=== PATIENT | female | born 2000 | race American Indian/Alaskan Native ===

== ENCOUNTER 2020-08-19 19:05 | Outpatient (CLI) | payer MEDICAID ==
[2020-08-19] MEDS ORDERED: LACTATED RINGERS 500 ML IV ONE (19:52)
[2020-08-19] MEDS ORDERED: MORPHINE 4 MG/1 ML INJ IM ONE (19:53)
[2020-08-19] MEDS ORDERED: ACETAMINOPHEN 500 MG TAB PO ONE (19:53)
--- NOTE | 2020-08-19 20:59 | Ultrasound Report ---
ULTRASOUND OBSTETRIC LIMITED ULTRASOUND BIOPHYSICAL PROFILE INDICATION / CLINICAL INFORMATION: SUSAN/BBP. Kicked in the stomach Clinical Gestational Age (GA): 35.3 weeks.days COMPARISON: None available. FINDINGS: BREATHING MOVEMENT = 2 GROSS BODY MOVEMENT = 2 TONE = 2 QUALITATIVE AMNIOTIC FLUID VOLUME = 2 TOTAL BIOPHYSICAL SCORE = 8/8 HEART RATE (beats per minute): 155 AMNIOTIC FLUID INDEX (cm) = 15.3 (normal = 7-24 cm) PRESENTATION: Cephalic. ADDITIONAL FINDINGS: The placenta is located anteriorly on the right, is grade 1 and is free of the o s. There is no evidence of abruption. IMPRESSION: 1. Biophysical Score = 8/8 2. SUSAN 15.3 cm. 3. No evidence of placental abruption. Signer Name: Truman Luna MD Signed: 08/19/2020 8:55 PM Workstation Name: [id number]
[2020-08-19 21:48] LABS: Bilirubin,Urine NEG (Negative); Blood,Urine NEG (Negative); Color,Urine Yellow (Yellow); Mucus,Urine 1+ /HPF; Urobilinogen,Urine < 2.0 mg/dL (<2.0)
[2020-08-19 22:07] LABS: Alanine Aminotransferase 6 units/L (7-56); Uric Acid 4.4 mg/dL (3.5-7.6)
[2020-08-19 22:10] VITALS: BP 139/71
== END 2020-08-19 22:29 | disposition home or self-care (01) ==
LOC: TRG 19:05 → APU 19:16 → TRG 22:29
PROVIDERS: ATTEND Obstetrics & Gynecology
DX: Z34.93 Encounter for supervision of normal pregnancy, unspecified, third trimester (principal); Z3A.35 35 weeks gestation of pregnancy
CPT/HCPCS: 36415; 59025; 76815; 76819; 81001; 82565; 83615; 84450; 84460; 84550; 87086

== ENCOUNTER 2020-09-09 10:27 | Emergency (ER) | payer MEDICAID ==
--- NOTE | 2020-09-09 10:53 | Emergency Department Report ---
ED Psych HPI - General Stated Complaint: SUICIDAL Time Seen by Provider: 09/09/20 10:42 Source: patient, EMS - History of Present Illness Initial Comments: Patient is 19 years old female with history of depression. Patient presented to the ER complaining of depression and suicidal ideation. Patient deliver 1 week ago. Patient stated that her plan is to jump in front of a moving car. Patient had similar episode after her first baby. Patient denied any homicidal ideation. No visual or auditory hallucination. MD Complaint: suicidal ideation, feels depressed -: days(s) - Related Data Previous Rx's Medication Instructions Recorded Last Taken Type Nitrofurantoin [place]/M-Cryst 100 mg PO Q12HR #12 capsule 10/12/19 Unknown Rx [Macrobid CAP] Allergies Allergy/AdvReac Type Severity Reaction Status Date / Time shellfish derived Allergy Swelling Verified 10/12/19 18:03 ED Review of Systems ROS: Stated complaint: SUICIDAL Other details as noted in HPI Comment: All other systems reviewed and negative Constitutional: denies: chills, fever Respiratory: denies: cough, shortness of breath Cardiovascular: denies: chest pain, palpitations Gastrointestinal: denies: abdominal pain, nausea, vomiting Neurological: denies: headache, weakness, numbness, paresthesias, confusion Psychiatric: depression, suicidal thoughts. denies: auditory hallucinations, visual hallucinations, homicidal thoughts ED Past Medical Hx - Past Medical History Hx Hypertension: No Hx Diabetes: No Hx Deep Vein Thrombosis: No Hx Renal Disease: No Hx Sickle Cell Disease: No Hx Arthritis: Yes Hx Seizures: No Hx Asthma: Yes (LAST ATTACK CHILD) Hx HIV: No - Social History Smoking Status: Never Smoker - Medications Home Medications: Home Medications Medication Instructions Recorded Confirmed Last Taken Type Nitrofurantoin [place]/M-Cryst 100 mg PO Q12HR #12 capsule 10/12/19 Unknown Rx [Macrobid CAP] ED Physical Exam - General Limitations: No Limitations General appearance: alert, in no apparent distress, other (depressed) - Head Head exam: Present: atraumatic, normocephalic, normal inspection - Eye Eye exam: Present: normal appearance, PERRL - ENT ENT exam: Present: normal exam, normal orophraynx, mucous membranes moist - Neck Neck exam: Present: normal inspection, full ROM. Absent: tenderness, meningismus, lymphadenopathy, thyromegaly - Respiratory Respiratory exam: Present: normal lung sounds bilaterally - Cardiovascular Cardiovascular Exam: Present: regular rate, normal rhythm, normal heart sounds - GI/Abdominal GI/Abdominal exam: Present: soft, normal bowel sounds. Absent: distended, tenderness, guarding, rebound, rigid, organomegaly, mass, bruit, pulsatile mass, hernia - Extremities Exam Extremities exam: Present: normal inspection, full ROM, normal capillary refill. Absent: tenderness - Back Exam Back exam: Present: normal inspection, full ROM. Absent: CVA tenderness (R), CVA tenderness (L) - Neurological Exam Neurological exam: Present: alert, oriented X3, CN II-XII intact - Psychiatric Psychiatric exam: Present: depressed, suicidal ideation. Absent: agitated, anxious, flat affect, manic, homicidal ideation - Skin Skin exam: Present: warm, intact, normal color ED Course Vital Signs 09/09/20 10:47 Temperature 98 F Pulse Rate 90 Respiratory 20 Rate Blood Pressure 139/89 [Left] O2 Sat by Pulse 98 Oximetry ED Medical Decision Making - Lab Data Result diagrams: 09/09/20 10:46 09/09/20 10:46 - Medical Decision Making Patient is 19 years old female with history of depression. Patient presented to the ER complaining of depression and suicidal ideation. Patient deliver 1 week ago. Patient stated that her plan is to jump in front of a moving car. Patient had similar episode after her first baby. Patient denied any homicidal ideation. No visual or auditory hallucination. Labs reviewed and is unremarkable except for positive UTI. Patient started on Macrobid. Patient is medically cleared to be evaluated by our psychiatric team for possible inpatient psychiatric admission. Critical care attestation.: If time is entered above; I have spent that time in minutes in the direct care of this critically ill patient, excluding procedure time. ED Disposition Clinical Impression: UTI (urinary tract infection), Suicidal ideation Disposition: [id number] PSY HOSP/PSY UNIT Is pt being admited?: No Condition: Stable
[2020-09-09 11:29] LABS: Bacteria,Urine 2+ /HPF (Negative); Bilirubin,Urine NEG (Negative); Blood,Urine LG (Negative); Color,Urine Amber (Yellow); Mucus,Urine 3+ /HPF
[2020-09-09 11:43] LABS: Amphetamine Screen,Urine Negative; Benzodiazepines Screen,Urine Negative; Cannabinoid Screen,Urine Negative; Cocaine Screen,Urine Negative; Methadone Screen,Urine Negative; Opiate Screen,Urine Negative
[2020-09-09 11:47] LABS: Hematocrit 34.9 % (30.3-42.9); Hemoglobin 11.3 gm/dl (10.1-14.3); Mean Corpuscular HGB Conc 32 % (30-34); Mean Corpuscular Volume 80 fl (79-97); Platelet Count 259 K/mm3 (140-440); Red Blood Count 4.34 M/mm3 (3.65-5.03)
[2020-09-09 11:54] LABS: WBC,Urine > 182.0 /HPF (0.0-6.0)
[2020-09-09 11:54] LABS: Blood Urea Nitrogen 9 mg/dL (7-17); Calcium 9.2 mg/dL (8.4-10.2); Hemolysis Index 2; Red Cell Distribution Width 32.1 % (13.2-15.2)
[2020-09-09 12:03] LABS: BUN/Creatinine Ratio 18
[2020-09-09 12:28] LABS: Total Cells Counted 100
[2020-09-09 12:29] LABS: Platelet Estimate Consistent w Auto; Tear Drop Cells 1+
[2020-09-09] MEDS: NITROFURANTOIN MONOHYD/M-CRYST 100 MG CAP PO SCH ×2 (15:57→23:03)
[2020-09-10 09:06] VITALS: BP 129/80
[2020-09-10] MEDS: NITROFURANTOIN MONOHYD/M-CRYST 100 MG CAP PO SCH (10:11)
--- NOTE | 2020-09-10 10:18 | Event Note ---
S: sleeping O: stable vital signs A: Acute depression suicidal ideation, depression, patient medically clear for psychiatric care P: Awaiting treatment recommendations from psychiatric team
--- NOTE | 2020-09-10 13:10 | Consultation ---
History of Present Illness - Reason for Consult Consult date: 09/10/20 Reason for consult: Suicidal ideation - History of Present Psychiatric Illness Per ED Note: Patient is 19 years old female with history of depression. Patient presented to the ER complaining of depression and suicidal ideation. Patient deliver 1 week ago. Patient stated that her plan is to jump in front of a moving car. Patient had similar episode after her first baby. Patient denied any homicidal ideation. No visual or auditory hallucination. Juan Spence is a 19 year female with a history of anxiety and depression who presents to the ED for suicidal thoughts and increasing depressi on. In my Interview with the patient, she reports feeling very depressed and was having suicidal thoughts yesterday;she reports that she has three children " this happens after every baby." The patient states that she lives with her parents, she states she spoke with them and feels better. She reports seeing a psychiatrist and was placed on some medication that she could not recall. Patient denies any current suicidal/ homicidal ideation and denies hallucinations. 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 PAST PSYCHIATRIC HISTORY: Diagnoses: Depression, and Anxiety Suicide attempts or Self-harm behavior: Denies Prior psychiatric hospitalizations: Denies Substance Abuse history: Denies Previous psychiatric medications tried: Unknown Outpatient treatment: unknown PAST MEDICAL HISTORY: None reported or document Family Psychiatric History: None reported or documented SOCIAL HISTORY Marital Status: Single Living Arrangements: lives with parents Employment Status: unemployed Access to guns/weapons: denies Education: [employer] History of Abuse: denies Legal History: denies REVIEW OF SYSTEMS Constitutional: Negative for weight loss ENT: Negative for stridor Respiratory: Negative for cough or hemoptysis All other systems reviewed and are negative MENTAL STATUS EXAMINATION General Appearance and Behavior: Age appropriate, wearing appropriate clothes, cooperative, polite with questioning, fair eye contact, calm Cooperation: cooperative Psychomotor Behavior: Psychomotor normal Mood: "OK" Affect and affective range: congruent with stated mood Thought Process: goal directed Thought Content: Denies SI Speech: Normal volume, Regular rate and rhythm Suicidal Ideation: Denies Homicidal Ideation: Denies hallucination: Deniesl Delusions: None elicited Impulse Control: Intact Insight and Judgment: Limited Memory: Intact Attention: attentive, engaging Orientation: Alert and oriented Diagnoses: Depression- F53.0 Treatment Plan Start - Prozac 20mg po daily PSYCHOTHERAPY: Supportive psychotherapy provided MEDICAL: Per primary team DELIRIUM PRECAUTIONS: Please re-orient patient frequently, keep lights on during the day, and minimize benzodiazepines and opiates as these medications could worsen patient's confusion. SLIVER HANDLER: Per medical team DISPOSITION:Do not recommend acute psychiatric inpatient treatment Will sign off. Thank you for the consult. Please contact with any questions and/or concerns. Case staffed with Dr. Virgen Medications and Allergies Allergies Allergy/AdvReac Type Severity Reaction Status Date / Time shellfish derived Allergy Swelling Verified 10/12/19 18:03 Home Medications Medication Instructions Recorded Confirmed Last Taken Type Nitrofurantoin [place]/M-Cryst 100 mg PO Q12HR #12 capsule 10/12/19 09/09/20 09/09/20 Rx [Macrobid CAP] FLUoxetine [PROzac] 20 mg PO QDAY 30 Days #30 capsule 09/10/20 Unknown Rx Active Meds: Active Medications Nitrofurantoin [place] (Nitrofurantoin [place]/M-Cryst 100 Mg Cap) 100 mg PO BID CED Stop: 09/15/20 22:01 Last Admin: 09/10/20 10:11 Dose: 100 mg Documented by: Mental Status Exam - Vital signs Last Vital Signs Temp 98.5 F 09/10/20 08:00 Pulse 62 09/10/20 08:00 Resp 16 09/10/20 08:00 BP 129/80 09/10/20 08:00 Pulse Ox 99 09/10/20 02:40 Results Result Diagrams: 09/09/20 10:46 09/09/20 10:46 All other labs normal.
--- NOTE | 2020-09-10 14:33 | Event Note ---
Date: 09/10/20 Patient seen and evaluated by psychiatry team. 1013 has been rescinded. Patient is cleared for discharge home. I spoke with patient and she denies any current suicidal ideation or thoughts of hurting her infant child. Patient has good support system at home with her family. She will be given a prescription for Prozac by psychiatry. Outpatient follow-up with advised. Return precautions given.
== END 2020-09-10 16:30 ==
LOC: ED 10:27
DX: R45.851 Suicidal ideations (principal); N39.0 Urinary tract infection, site not specified; M19.90 Unspecified osteoarthritis, unspecified site; J45.909 Unspecified asthma, uncomplicated; Z20.822 Contact with and (suspected) exposure to COVID-19; Z91.013 Allergy to seafood
CPT/HCPCS: 36415; 80048; 80307; 81001; 84703; 85007; 85025; 99284; U0003; 80320; G0480